=== PATIENT | male | born 1970 | race Caucasian/White ===

== ENCOUNTER 2018-10-13 12:50 | Emergency (ER) | payer OTHER ==
[~2018-10-13] VITALS: Ht 175.3 cm; Wt 83.5 kg
[~2018-10-13 12:50] MED LIST: IBUP100T7 PO; METH20TA PO; ONDA4TAB7 PO; OXYC-302 PO; PIND5TAB PO
--- NOTE | 2018-10-13 13:42 | NUR ---
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
--- NOTE | 2018-10-13 14:08 | NUR ---
[facility] PT REPORTS INTERMITTIENT RLQ 'DISCOMFORT' X SIX MONTHS W/ DAILY MORNING NAUSEA AND FREQUENT 'DRY HEAVES'; PAIN WORSENING TODAY. "I FEEL LIKE I HAVE TO CRAP". +CHILLS/ TESTICULAR PAIN; PT DENIES CP/SOB/DIARRHEA/VOMITING/FEVER/BLOOD IN STOOL. HX OF APPY AND RLQ HERNIA REPAIR. RLQ TENDER TO PALPATION. IV ESTABLISHED, LABS DRAWN. BP/SPO2 MONITORING IN PLACE. SO AT BEDSIDE. PT PROVIDED URINAL FOR UA WHEN ABLE.
[2018-10-13] MEDS ORDERED: SODIUM CHLORIDE FLUSH 10ML SYR IVF ONE (14:30)
[2018-10-13 15:07] LABS: BASOPHILS # (AUTO) 0.04 x10^3/uL (0-0.1); BASOPHILS % (AUTO) 0 % (0-1); EOSINOPHILS # (AUTO) 0.05 x10^3/uL (0-0.4); EOSINOPHILS % (AUTO) 1 % (1-7); LYMPHOCYTES % (AUTO) 22 % (22-44); MD NO; MEAN CORPUSCULAR HGB CONC 34.3 g/dL (33.2-36.2); MEAN CORPUSCULAR VOLUME 90.4 fL (81-97); MEAN PLATELET VOLUME 8.1 fL (7.4-10.4); MONOCYTES # (AUTO) 0.53 x10^3/uL (0.2-0.8); MONOCYTES % (AUTO) 5 % (2-9); NEUTROPHILS # (AUTO) 7.44 x10^3/uL (1.8-6.8); NEUTROPHILS % (AUTO) 72 % (42-75); PLATELET COUNT 304 x10^3/uL (130-400); RED BLOOD COUNT 4.92 x10^6/uL (4.38-5.82); RED CELL DISTRIBUTION WIDTH 13.1 % (9.4-14.8)
[2018-10-13 15:13] LABS: ALANINE AMINOTRANSFERASE 21 U/L (12-78); ALBUMIN 4.1 g/dL (3.4-5.0); ANION GAP 8 mmol/L (5-15); CHLORIDE 110 mmol/L (98-107); CREATININE 1.14 mg/dL (0.7-1.3)
--- NOTE | 2018-10-13 15:13 | NUR ---
UA COLLECTED AND SENT TO LAB
[2018-10-13 15:15] LABS: ALKALINE PHOSPHATASE 44 U/L (45-117); TOTAL PROTEIN 7.3 g/dL (6.4-8.2)
--- NOTE | 2018-10-13 15:18 | NUR ---
REPORT TO BG ROBBINS
--- NOTE | 2018-10-13 15:21 | NUR ---
REPORT FROM KATHY PEDERSON, ASSUME CARE OF PT. PT IN CT.
[2018-10-13] MEDS ORDERED: OMNIPAQUE 350 MG/ML, 100ML BOTTLE ONE (15:40)
[2018-10-13 15:51] LABS: MICROSCOPIC INDICATED
[2018-10-13 16:05] LABS: CULTURE INDICATED? NO
--- NOTE | 2018-10-13 16:15 | NUR ---
ALL RESULTS BACK, PT FOR RECHECK.
[2018-10-13 16:40] VITALS: BP 124/68
== END 2018-10-13 16:42 | disposition home or self-care (01) ==
LOC: ED 16:35
DX: R10.31 Right lower quadrant pain (principal); R20.2 Paresthesia of skin; R10.30 Lower abdominal pain, unspecified
CPT/HCPCS: 36415; 74177; 80053; 81001; 83690; 85025; 99284; Q9967

== ENCOUNTER → 2018-11-10 | Outpatient (CLI) | payer OTHER | END | disposition home or self-care (01) | LOC: CFH 15:10 | PROVIDERS: ATTEND Chiropractor | DX: M48.07 Spinal stenosis, lumbosacral region (principal); M48.02 Spinal stenosis, cervical region; M50.31 Other cervical disc degeneration, high cervical region; M43.8X4 Other specified deforming dorsopathies, thoracic region; M25.852 Other specified joint disorders, left hip; M25.851 Other specified joint disorders, right hip | CPT/HCPCS: 72050; 72072; 72100; 72170 ==